=== PATIENT | female | born 1995 | race Caucasian/White ===

== ENCOUNTER 2016-08-07 14:30 | Emergency (ER) | payer OTHER ==
[~2016-08-07] VITALS: Ht 167.6 cm; Wt 86.2 kg
[2016-08-07 14:34] VITALS: TEMP 36.8; Ht 167.6 cm; Wt 86.2 kg
[2016-08-07] MEDS ORDERED: SPIR50TA2 PO (15:07)
[2016-08-07] MEDS ORDERED: Flovent HFA INH (15:07)
[2016-08-07] MEDS ORDERED: LISD60CA PO (15:07)
[2016-08-07] MEDS ORDERED: QVRINH80 INH (15:07)
[2016-08-07] MEDS ORDERED: BCPILLS PO (15:07)
[2016-08-07] MEDS ORDERED: CLR10 PO (15:07)
--- NOTE | 2016-08-07 15:36 | EMERGENCY ROOM VISIT NOTE ---
ED Visit Note First contact with patient: 14:44 CHIEF COMPLAINT: Head injury HISTORY OF PRESENT ILLNESS: This 20-year-old female patient presented to the emergency department ambulatory after receiving a head injury to 3 days ago. The patient reports that her friend closed the trunk of a car, striking the top of her head. There was no loss of consciousness. There has been no vomiting. The patient complains of headache, mild photophobia and intermittent nausea. The patient denies confusion, blurred vision, slurred speech, numbness or weakness. She does have some stiffness on the right side of her neck. The headache has been constant and mild. The patient has taken nothing at home for the pain. The patient rates the pain as 6/10 and dull. The patient denies bowel or bladder dysfunction. The patient denies any other injuries. The patient was seen at [facility] and sent here for further evaluation. REVIEW OF SYSTEMS: A review of systems was performed with positives and pertinent negatives listed in the history of present illness. All other systems were reviewed and are negative. ALLERGIES: Penicillins MEDICATIONS: Aldactone, Claritin, Vyvanse, control pills PMH: No pertinent past medical history. SOCIAL HISTORY: The patient is a [employer] student and lives with roommates. She admits to occasional alcohol use. Nonsmoker. PHYSICAL EXAM: Vital Signs: Reviewed Nurse's notes, vital signs stable. GENERAL : This is a 20-year-old female, in no acute distress, well-developed, well- nourished. NEURO: The patient is alert, oriented to person place and time, and coherent. Normal mini mental status exam. Negative Romberg and pronator drift. Cerebellar function intact. GCS score of 15. HEAD: Normocephalic, atraumatic. EYES: Pupils are equal round and reactive to light and accommodation. EOMs are full and optic discs and fundi are normal. There is no swelling or discoloration of the tissue surrounding the eyes. EARS: External auditory canals clear without blood. NOSE: Patent without tenderness. No septal hematoma. FACE: No facial bone tenderness. NECK: Supple. There is no cervical spine tenderness. There is mild tenderness of the right cervical paraspinous muscles. The patient does not have tenderness with movement of the neck. ED COURSE: I examined the patient. She presents 3 days after a head injury. She does complain of a headache and intermittent nausea. There has been no loss of consciousness, vomiting, lethargy or personality changes. I discussed options of care with the patient including CT scan versus observation for further symptoms and the patient would prefer to be treated conservatively. Customary head injury precautions were reviewed with the patient. She was instructed to follow-up with [facility] this week for further evaluation. She will return sooner for any new/concerning symptoms. The patient was discharged home in good condition ambulatory. DIAGNOSIS: Head injury Current/Historical Medications Scheduled Beclomethasone Dip (Qvar), 1 PUFF INH BID Control Pills ( Control Pills), 1 TAB PO DAILY Lisdexamfetamine Dimesylate (Vyvanse), 60 MG PO DAILY Loratadine (Claritin), 10 MG PO DAILY Spironolactone (Aldactone), 50-100 MG PO HS Scheduled PRN [Flovent HFA], 1 PUFF INH BID PRN for Prior to Exercise and Needed Allergies Coded Allergies: Amoxicillin (Verified Allergy, Intermediate, Nausea/Vomiting, 08/07/16) Penicillins (Verified Allergy, Intermediate, Nausea/Vomiting, 08/07/16) Vital Signs Date Time Temp Pulse Resp B/P Pulse Ox O2 Delivery O2 Flow Rate FiO2 08/07/16 15:57 90 20 133/93 100 08/07/16 14:34 36.8 105 18 138/86 99 Room Air Departure Information Impression Primary Impression: Closed head injury Dispostion Home / Self-Care Condition GOOD Referrals [facility] (PCP) Patient Instructions My [facility] Additional Instructions You have been treated in the Emergency Department for a Closed Head Injury. For pain control, you can use the following [id number] medicines (if >12 yo): - Regular strength (325mg/tab) Tylenol (acetaminophen) 2 tabs every 4-6 hours as needed. Do not exceed 12 tablets in a 24 hour period. Avoid taking more than 4 grams (4000 mg) of Tylenol per day. This includes any other sources of acetaminophen you may take on a regular basis. - Regular strength (200 mg/tab) Advil (ibuprofen) 1-2 tabs every 4-6 hours as needed. Do not exceed a dose of 3200 mg per day. You should relax in a quiet, dark place for the rest of the day. Avoid any possible triggers including: cigarette smoke, caffeine, nicotine, chocolate, wine, beer, loud noises or music, or bright lights. You should schedule a follow-up appointment in 2-3 days with your Primary Care Provider or established Neurologist for further evaluation and treatment of your Headache. You should NOT return to athletic play until reevaluated by your [employer]. You should fully comply with their standard protocol regarding head injuries. Your [employer] OR Primary Care Provider will have the final say in your return to athletic play. This timeframe should be AT LEAST 1 week AFTER the date of last symptoms experienced! This is ESSENTIAL to allow for adequate brain healing time and for reduced risk of re-injury. Return to the Emergency Department if your current symptoms worsen despite treatment course outlined above, or if you develop any of the following symptoms : intractable pain despite aforementioned treatment course, visual disturbances , loss of vision, unilateral weakness or facial drooping, slurring of speech, loss of coordination, or loss of consciousness.
[2016-08-07 15:57] VITALS: BP 133/93; PULSE 90; O2SAT 100
== END 2016-08-07 15:59 | disposition home or self-care (01) ==
LOC: C.EDB 14:32 → C.EDD 15:59
DX: S09.90XA Unspecified injury of head, initial encounter (principal); Z79.3 Long term (current) use of hormonal contraceptives; Z79.899 Other long term (current) drug therapy; W22.8XXA Striking against or struck by other objects, initial encounter; R11.0 Nausea